=== PATIENT | female | born 1970 | race Caucasian/White ===

== ENCOUNTER 2019-04-05 14:31 | Outpatient (CLI) | payer BC ==
--- NOTE | 2019-04-05 15:35 | ULT ---
THYROID ULTRASOUND: 04/05/19 INDICATION: Thyroid nodule, no prior comparisons. FINDINGS: There is normal volume and homogeneous echotexture of the thyroid gland. Left thyroid lobe measures 3.7 cm in length as does the right thyroid lobe. Thyroid isthmus is 2 mm in thickness. No suspicious nodules. Punctate hypoechoic foci are too small to definitely characterize and are of doubtful clinic al significance. IMPRESSION: No dominant thyroid nodule. POS: [facility]
== END 2019-04-05 14:32 | disposition home or self-care (01) ==
LOC: SCSMAMMO 14:31
PROVIDERS: ATTEND Family Medicine
DX: Z12.31 Encounter for screening mammogram for malignant neoplasm of breast (principal); E04.1 Nontoxic single thyroid nodule
CPT/HCPCS: 76536; 77067

== ENCOUNTER 2019-09-11 16:08 | Outpatient (CLI) | payer BC ==
--- NOTE | 2019-09-11 16:50 | CT ---
"PRELIMINARY REPORT" CT chest noncontrast high-resolution HISTORY: Cough. Interstitial lung disease. Pulmonary nodule. FINDINGS: No prior exams are available. Exam, as ordered, was performed with 1 mm slices at 10 mm intervals. This is intended to evaluate for the pulmonary interstitium but does not well evaluate for pulmonary nodules. Lungs are well-inflated. No pleural fluid or significant peripheral interstitial thickening. No evide nce of bronchiectasis. No parenchymal destruction. While the high-resolution technique does not well evaluate for nodules, there are numerous nodules th roughout each lung, more numerous and larger in general at the lung bases. Based on this exam, the largest is at the lateral aspect of the lingula of left upper lobe, abutting the pleural surface and measuring 0.8 cm greatest diameter. No bulky mediastinal adenopathy is evident, although the lack of contrast and high-resolution techniq ue does not well evaluate for such. Bilateral breast implants are apparent. IMPRESSION: No CT evidence of significant interstitial lung disease. Numerous bilateral parenchymal nodules. Appearance is suspicious for an aggressive process. Please co nsider pulmonary evaluation and a dedicated CT chest with IV contrast for better characterization of the entirety of the lungs and mediastinum. Code lung nodule. CODE T. Transcribed Date/Time: 09/11/2019 5:22 PM
== END 2019-09-11 16:09 | disposition home or self-care (01) ==
LOC: BICCT 16:08
PROVIDERS: ATTEND Family Medicine
DX: R91.8 Other nonspecific abnormal finding of lung field (principal)
CPT/HCPCS: 71250

== ENCOUNTER 2019-10-01 10:30 | Outpatient (CLI) | payer BC ==
--- NOTE | 2019-10-01 10:42 | RAD ---
Chest 2 views HISTORY: Dyspnea. Lung nodules. COMPARISON: 07/30/2019. FINDINGS: Cardiac silhouette and pulmonary vasculature are unremarkable. Mediastinum is midline. Multiple subtle ill-defined soft tissue density nodules projecting over each lung are similar in appe arance to the prior exam and correlate with the nodules detailed on CT chest 09/11/2019. No pneumothorax or pleural fluid are apparent. No lobar consolidation. IMPRESSION: Stable radiographic appearance of multiple bilateral lung nodules.
== END 2019-10-01 10:31 | disposition home or self-care (01) ==
LOC: RAD 10:30
PROVIDERS: ATTEND Internal Medicine
DX: R06.00 Dyspnea, unspecified (principal); R91.8 Other nonspecific abnormal finding of lung field
CPT/HCPCS: 71046

== ENCOUNTER 2019-11-15 13:22 | Outpatient (CLI) | payer BC ==
[2019-11-15] MEDS ORDERED: Iopamidol-370 76% 500 ML 1 ML ONE (14:33)
--- NOTE | 2019-11-15 15:31 | CT ---
CT CHEST WITH CONTRAST: Axial tomograms were obtained with multiplanar reconstruction. INDICATION: Followup pulmonary nodules. COMPARISON: Comparison is made to chest CT of 09/11/2019. FINDINGS: Left lung: On prior exam in the left upper lobe a pleural-based nodule was described measuring 8 mm. On today's study there are new nodules in the left upper lobe which have developed since 09/11/2019. There is now a 5 mm nodule seen anterior left upper lobe, image 34 axial. There is a 6 mm nodule peripheral left upper lobe, image 35. The pleural-based nodule peripheral lef t upper lobe in the region of the lingula described previously is again seen measuring 8 mm. Left lower lobe: There is a new nodule seen on image 64 year the fissure. The previously noted 7 mm nodule posterior left lower lobe, image 68, is again noted. There is a new 5 mm nodule left lower lobe laterally on image 64. Right lung: In the right upper lobe, there is a new centrally cavitating nodule in the anterior right upper lobe, image 28 of 104 axial measuring 6 to 7 mm. A peripheral nodule in the right upper lobe near the pleural surface on image 39 measuring 6 mm is ag ain seen and was present previously. There is a 5-6 mm nodule right upper lobe posterior image 27 se elisa 104 which was present previously and measured 3 mm on the prior study. Right middle lobe: The 5-6 mm nodule seen on image 54 was present previously and is again noted. A 5 mm nodule image 46 is seen stable from prior exam. Another 5 mm nodule image 48 appears new. Right lower lobe: A 6-7 mm nodule posterior right lower lobe image 57 was present previously. There are several other new nodules seen in the right lower lobe measuring up to 5 mm. A peripheral nodule near the pleural surface on image 67. Posterior nodule right lower lobe image 66 of 5 to 6 mm. A 5 mm nodule more me dial right lower lobe image 69. Mediastinum unremarkable. No adenopathy identified. Bilateral breast implants. Liver appears unremarkable. Upper abdomen unremarkable. Osseous structures unremarkable. IMPRESSION: Numerous bilateral pulmonary nodules. There has been increase in the number of nodules when compared to recent exam of 09/11/2019 as detailed above. Pulmonary metastatic disease would be the primary c oncern. POS: [facility]
== END 2019-11-15 13:23 | disposition home or self-care (01) ==
LOC: BICCT 13:22
PROVIDERS: ATTEND Internal Medicine
DX: R91.8 Other nonspecific abnormal finding of lung field (principal)
CPT/HCPCS: 71260; Q9967

== ENCOUNTER 2020-06-26 12:26 | Outpatient (CLI) | payer BC ==
[2020-06-26] MEDS ORDERED: Iopamidol-370 76% 500 ML 1 ML ONE (13:32)
--- NOTE | 2020-06-26 15:02 | CT ---
EXAM: CT of the chest with contrast HISTORY: History of pulmonary nodules COMPARISON: 11/15/2019 TECHNIQUE: Multiple contiguous axial images were obtained in a CT the chest with contrast. Coronal an d sagittal reformats were performed. FINDINGS: HEART: Normal in size without focal cardiac abnormality MEDIASTINUM: No hilar or mediastinal lymphadenopathy. LUNGS: There are numerous scattered well-circumscribed nodules scattered throughout both lungs measur ing up to 8 mm in size in the lingula. No new pulmonary nodules are seen. None of the nodules have significantly increased in size. Apparent mild enlargement of some of the nodules in the right lung b ase may be secondary to slice selection. PLEURAL SPACE: No pneumothorax or pleural effusion. CHEST WALL SOFT TISSUES: Bilateral breast implants. OSSEOUS STRUCTURES: No acute abnormality. VISUALIZED SUBDIAPHRAGMATIC STRUCTURES: Unremarkable IMPRESSION: Multifocal pulmonary nodules. A follow-up CT in 6 months is recommended to ensure continued stability .
== END 2020-06-26 12:27 | disposition home or self-care (01) ==
LOC: BICCT 12:26
PROVIDERS: ATTEND Internal Medicine
DX: R91.8 Other nonspecific abnormal finding of lung field (principal)
CPT/HCPCS: 71260; Q9967

== ENCOUNTER 2021-01-01 10:33 | Outpatient (CLI) | payer BC | END 2021-01-01 10:34 | disposition home or self-care (01) | LOC: BICCT 10:33 | PROVIDERS: ATTEND Internal Medicine Pulmonary Disease | DX: R91.8 Other nonspecific abnormal finding of lung field (principal) | CPT/HCPCS: 71260 ==